=== PATIENT | female | born 1950 | race Caucasian/White ===

== ENCOUNTER 2017-09-22 06:38 | Emergency (ER) | payer OTHER ==
[~2017-09-22] VITALS: Ht 177.8 cm; Wt 75.5 kg
[~2017-09-22 06:38] MED LIST: CELEXA20 MG PO; CITALOPRAM HBR20 MG; HYDROCHLOROTH12.5 M3 PO; MONTELUKAST SOD10 MG; MONTELUKAST SOD10 MG PO; MOTRIN800 MG PO; NAPROXEN500 MG PO; PERCOCET 5/31 TABLET PO; SKELAXIN800 MG PO
[2017-09-22 07:32] LABS: HEMATOCRIT 38.4 % (36.0-46.0); MCH 30.6 PG (29.0-34.0); MCHC 33.9 G/DL (30.0-36.0); MCV 90.4 FL (83-99); PLATELET COUNT 277 K/uL (156-360); RBC DIS.WIDTH-CV 12.7 % (11.8-14.6); RBC DIS.WIDTH-SD 41.7 % (39-53); RED BLOOD COUNT 4.25 M/uL (3.80-5.20)
[2017-09-22 07:54] LABS: CHLORIDE 105 MEQ/L (99-109); POTASSIUM 3.8 MEQ/L (3.7-5.4); SODIUM 140 MEQ/L (136-147)
[2017-09-22 08:00] LABS: CREATININE 0.6 MG/DL (0.6-1.3); GFR ESTIMATE (CALCULATED) > 59 mL/min/; GLUCOSE 118 mg/dL (70-99); TROP-I INTERPRETATION NEGATIVE; TROPONIN-I 0.02 ng/mL (0.0-0.30); UREA NITROGEN (BUN) 18 mg/dL (9-23)
[2017-09-22 08:04] LABS: ALBUMIN 4.1 G/DL (3.2-4.8); DIRECT BILIRUBIN 0.1 mg/dL (0.0-0.3); TOTAL BILIRUBIN 0.5 MG/DL (0.0-1.0)
[2017-09-22 08:10] LABS: ALKALINE PHOSPHATASE 56 IU/L (3-129); TOTAL PROTEIN 6.8 G/DL (6.4-8.3)
[2017-09-22 08:11] LABS: ALT (GPT) 29 IU/L (3-49); AST (GOT) 59 IU/L (2-34)
[2017-09-22 10:17] LABS: LIPASE 71 U/L (1.0-51.0)
[2017-09-22 10:26] LABS: TROP-I INTERPRETATION NEGATIVE; TROPONIN-I < 0.01 ng/mL (0.0-0.30)
[2017-09-22] MEDS ORDERED: AUGMENTIN875 MG PO (13:21)
[2017-09-22] MEDS ORDERED: ZOFRAN4 MG PO (13:21)
[2017-09-22] MEDS ORDERED: PERCOCET 5/31 TABLET PO (13:21)
[2017-09-22 13:50] VITALS: BP 136/78
== END 2017-09-22 14:05 | disposition home or self-care (01) ==
LOC: EME 06:38
PROVIDERS: Emergency Medicine
DX: K80.10 Calculus of gallbladder with chronic cholecystitis without obstruction (principal); I10 Essential (primary) hypertension; E78.5 Hyperlipidemia, unspecified; F41.9 Anxiety disorder, unspecified; Z88.0 Allergy status to penicillin
CPT/HCPCS: 71046; 76705; 80048; 80076; 83690; 84484; 85027; 93005; 99281; 99285; J1885

== ENCOUNTER 2017-10-15 01:04 | Observation (INO) | payer OTHER ==
[~2017-10-15] VITALS: Ht 165.1 cm; Wt 75.5 kg
[~2017-10-15 01:04] MED LIST changes: +AUGMENTIN875 MG PO; +ZOFRAN4 MG PO
[2017-10-15 01:35] LABS: APPEARANCE CLEAR ((CLEAR)); BILIRUBIN NEGATIVE; BLOOD NEGATIVE; COLOR STRAW ((YELLOW)); GLUCOSE (STRIP) NEGATIVE; KETONES NEGATIVE; LEUKOCYTES NEGATIVE; NITRITE NEGATIVE; PROTEIN (STRIP) NEGATIVE; UCUL ADDED? NO; UROBILINOGEN 0.2 MG/DL (0.2-1.0)
[2017-10-15 01:36] LABS: HEMATOCRIT 39.6 % (36.0-46.0); HEMOGLOBIN 13.4 G/DL (11.9-15.5); MCH 30.4 PG (29.0-34.0); MCHC 33.8 G/DL (30.0-36.0); MCV 89.8 FL (83-99); PLATELET COUNT 303 K/uL (156-360); RBC DIS.WIDTH-CV 12.9 % (11.8-14.6); RBC DIS.WIDTH-SD 42.6 % (39-53); RED BLOOD COUNT 4.41 M/uL (3.80-5.20); WHITE BLOOD COUNT 9.4 K/uL (4.1-10.2)
[2017-10-15 01:46] LABS: ALBUMIN 4.1 g/dL (3.2-4.8); CHLORIDE 106 mEq/L (99-109); POTASSIUM 3.5 mEq/L (3.7-5.4)
[2017-10-15 01:47] LABS: SODIUM 140 mEq/L (136-147)
[2017-10-15 01:49] LABS: GLUCOSE 107 mg/dL (70-99); TOTAL PROTEIN 7.2 g/dL (6.4-8.3)
[2017-10-15 01:51] LABS: TOTAL BILIRUBIN 0.3 mg/dL (0.0-1.0)
[2017-10-15 01:52] LABS: ALKALINE PHOSPHATASE 58 IU/L (3-129); CREATININE 0.7 mg/dL (0.6-1.3); GFR ESTIMATE (CALCULATED) > 59 mL/min/
[2017-10-15 01:54] LABS: AST (GOT) 14 IU/L (2-34); UREA NITROGEN (BUN) 23 mg/dL (9-23)
[2017-10-15 01:55] LABS: ALT (GPT) 12 IU/L (3-49)
[2017-10-15 02:38] LABS: LIPASE 94 U/L (1.0-51.0)
[2017-10-15 05:57] VITALS: BP 146/76
[2017-10-15 07:46] VITALS: BP 107/63
[2017-10-15 12:30] VITALS: BP 120/74
[2017-10-15 12:39] VITALS: BP 120/74
[2017-10-15] MEDS ORDERED: ONDANSETRON HCL8 MG PO (14:41)
[2017-10-15] MEDS ORDERED: PERCOCET 5/31 TABLET PO (14:41)
[2017-10-15] MEDS ORDERED: COLACE100 MG PO (14:41)
[2017-10-15 19:00] VITALS: BP 133/62
== END 2017-10-15 20:24 | disposition home or self-care (01) ==
LOC: EME 01:04 → EDOF 04:30 → ENRESERV 04:52 → 2EASTP 05:47
DX: K80.10 Calculus of gallbladder with chronic cholecystitis without obstruction (principal); K66.0 Peritoneal adhesions (postprocedural) (postinfection); R04.0 Epistaxis; I10 Essential (primary) hypertension; E78.5 Hyperlipidemia, unspecified; I49.3 Ventricular premature depolarization; M19.90 Unspecified osteoarthritis, unspecified site; Z85.828 Personal history of other malignant neoplasm of skin; Z88.0 Allergy status to penicillin
CPT/HCPCS: 74177; 76705; 80053; 81003; 83690; 85027; 88304; 93005; 99281; 99285; G0378; J0131; J1100; J1170; J1885; J2250; J2710; J3010; J3370; J7030; J7120; J7643